=== PATIENT | male | born 1950 | race Caucasian/White ===

== ENCOUNTER 2022-05-19 17:18 | Inpatient (IN) | payer OTHER, MEDICAID ==
[~2022-05-19] VITALS: Ht 175.3 cm; Wt 111.1 kg
[2022-05-19 17:35] VITALS: BP_SYST 82
[2022-05-19] MEDS ORDERED: NACL 0.9% 1,000 ML IV ONE (19:45)
[2022-05-19 20:17] LABS: BASOPHILS % (AUTO) 0.3 % (0.0-2.0); EOSINOPHILS % (AUTO) 0.3 % (0.0-4.0); HEMATOCRIT 46.5 % (36-54); HEMOGLOBIN 15.4 g/dL (14.0-18.0); LYMPHOCYTES # (AUTO) 1.3 K/uL (1.0-5.5); MEAN CORPUSCULAR HEMOGLOBIN 32 pg (27-31); MEAN CORPUSCULAR HGB CONC 33 % (32-36); MEAN CORPUSCULAR VOLUME 96 fL (79.0-98.0); MONOCYTES # (AUTO) 1.3 K/uL (0.0-1.0); MONOCYTES % (AUTO) 12.5 % (1.7-9.3); NEUTROPHILS # (AUTO) 7.4 K/uL (1.8-7.7); NEUTROPHILS % (AUTO) 73.9 % (40.0-70.0); PLATELET COUNT (AUTO) 244 K/uL (130-430); RED BLOOD CELL COUNT(AUTO) 4.85 MIL/uL (4.2-6.2); RED CELL DISTRIBUTION WIDTH 14.4 % (9.0-15.0); WHITE BLOOD COUNT (AUTO) 10.1 K/uL (4.8-10.8)
[2022-05-19 20:19] LABS: ANION GAP 11 (5-15); CALCIUM 7.9 mg/dL (8.4-11.0); CHLORIDE 101 mmol/L (98-107); CREATININE 2.67 mg/dL (0.55-1.30); GLUCOSE 94 mg/dL (70-99); POTASSIUM 3.6 mmol/L (3.5-5.1); SODIUM SERUM 137 mmol/L (136-145); UREA NITROGEN, BLOOD 48 mg/dL (8-21)
[2022-05-19 20:34] LABS: ALBUMIN 3.8 g/dL (3.4-4.8); ASPARTATE AMINOTRANSFERASE 10 U/L (10-37); LIPASE 882 U/L (73-393); TOTAL BILIRUBIN 1.3 mg/dL (0.0-1.0)
[2022-05-19 20:49] LABS: ALANINE AMINOTRANSFERASE 9 U/L (12-78)
[2022-05-19] MEDS ORDERED: DIPHENHYDRAMINE INJ 50 MG/ML VIAL IVP ONE (21:00)
[2022-05-19] MEDS ORDERED: HALOPERIDOL LACTATE 5 MG/ML VIAL IVP ONE (21:00)
[2022-05-19] MEDS ORDERED: LORazepam 2 MG/ML VIAL IVP ONE (21:00)
[2022-05-19] MEDS ORDERED: NACL 0.9% 1,000 ML IV SCH (22:45)
[2022-05-19] MEDS ORDERED: ACETAMINOPHEN 325 MG TABLET PO PRN (22:45)
[2022-05-19] MEDS ORDERED: ALBUTEROL SULFATE 0.083% 2.5 MG/3 ML VIAL.NEB INH PRN (22:45)
[2022-05-19 23:25] LABS: BILIRUBIN,URINE NEGATIVE (NEGATIVE); BLOOD, URINE NEGATIVE (NEGATIVE); CLARITY/URINE CLEAR (CLEAR); COLOR,URINE YELLOW (YELLOW); GLUCOSE,URINE NEGATIVE (NEGATIVE); KETONES,URINE NEGATIVE (NEGATIVE); LEUKOCYTE ESTERASE ,URINE NEGATIVE (NEGATIVE); NITRITE, URINE NEGATIVE (NEGATIVE); PROTEIN URINE NEGATIVE (NEGATIVE); UROBILINOGEN,URINE 0.2 (0.2-1.0)
[2022-05-20] VITALS (7 sets, daily range): BP systolic 82–134
[2022-05-20] MEDS: NACL 0.9% 1,000 ML IV SCH ×3 (02:44→22:59)
[2022-05-20] MEDS ORDERED: [UNRECOGNIZED DRUG - CODE] (03:06)
[2022-05-20] MEDS ORDERED: IBRU70CA (03:06)
[2022-05-20] MEDS ORDERED: DONE5TAB3 (03:06)
[2022-05-20] MEDS ORDERED: LISI-209 (03:06)
[2022-05-20] MEDS ORDERED: HYDR12.5 (03:06)
[2022-05-20] MEDS ORDERED: OMEP20CA15 (03:06)
[2022-05-20] MEDS ORDERED: [UNRECOGNIZED DRUG - CODE] (03:06)
[2022-05-20] MEDS ORDERED: MULT-976 (03:06)
[2022-05-20 06:43] LABS: BASOPHILS % (AUTO) 0.3 % (0.0-2.0); EOSINOPHILS % (AUTO) 0.2 % (0.0-4.0); HEMATOCRIT 44.9 % (36-54); HEMOGLOBIN 15.2 g/dL (14.0-18.0); LYMPHOCYTES # (AUTO) 1.1 K/uL (1.0-5.5); LYMPHOCYTES % (AUTO) 15.5 % (20.5-51.5); MEAN CORPUSCULAR HEMOGLOBIN 33 pg (27-31); MEAN CORPUSCULAR HGB CONC 34 % (32-36); MEAN CORPUSCULAR VOLUME 96 fL (79.0-98.0); MONOCYTES # (AUTO) 1.4 K/uL (0.0-1.0); MONOCYTES % (AUTO) 20.1 % (1.7-9.3); NEUTROPHILS # (AUTO) 4.4 K/uL (1.8-7.7); NEUTROPHILS % (AUTO) 63.9 % (40.0-70.0); PLATELET COUNT (AUTO) 154 K/uL (130-430); RED BLOOD CELL COUNT(AUTO) 4.66 MIL/uL (4.2-6.2); RED CELL DISTRIBUTION WIDTH 14.1 % (9.0-15.0); WHITE BLOOD COUNT (AUTO) 6.9 K/uL (4.8-10.8)
[2022-05-20 07:00] LABS: ALANINE AMINOTRANSFERASE 9 U/L (12-78); ANION GAP 12 (5-15); ASPARTATE AMINOTRANSFERASE 11 U/L (10-37); CHLORIDE 105 mmol/L (98-107); CREATININE 1.69 mg/dL (0.55-1.30); GLUCOSE 75 mg/dL (70-99); POTASSIUM 3.1 mmol/L (3.5-5.1); SODIUM SERUM 139 mmol/L (136-145); TOTAL BILIRUBIN 1.8 mg/dL (0.0-1.0); UREA NITROGEN, BLOOD 36 mg/dL (8-21)
[2022-05-20] MEDS ORDERED: POTASSIUM CHLORIDE 20 MEQ/PKT PACKET PO ONE (21:30)
[2022-05-21 00:15] VITALS: BP_SYST 122
[2022-05-21] MEDS ORDERED: DIPHENHYDRAMINE INJ 50 MG/ML VIAL IVP ONE (03:30)
[2022-05-21 06:41] LABS: BASOPHILS % (AUTO) 0.5 % (0.0-2.0); EOSINOPHILS % (AUTO) 0.5 % (0.0-4.0); HEMATOCRIT 40.6 % (36-54); HEMOGLOBIN 13.8 g/dL (14.0-18.0); LYMPHOCYTES # (AUTO) 1.1 K/uL (1.0-5.5); LYMPHOCYTES % (AUTO) 18.1 % (20.5-51.5); MEAN CORPUSCULAR HEMOGLOBIN 33 pg (27-31); MEAN CORPUSCULAR HGB CONC 34 % (32-36); MEAN CORPUSCULAR VOLUME 96 fL (79.0-98.0); MONOCYTES # (AUTO) 1.2 K/uL (0.0-1.0); MONOCYTES % (AUTO) 20.8 % (1.7-9.3); NEUTROPHILS # (AUTO) 3.6 K/uL (1.8-7.7); NEUTROPHILS % (AUTO) 60.1 % (40.0-70.0); PLATELET COUNT (AUTO) 171 K/uL (130-430); RED BLOOD CELL COUNT(AUTO) 4.21 MIL/uL (4.2-6.2); RED CELL DISTRIBUTION WIDTH 14.4 % (9.0-15.0)
[2022-05-21 08:07] LABS: ALBUMIN 2.7 g/dL (3.4-4.8); CALCIUM 7.6 mg/dL (8.4-11.0); GLUCOSE 77 mg/dL (70-99); POTASSIUM 3.1 mmol/L (3.5-5.1); UREA NITROGEN, BLOOD 21 mg/dL (8-21)
[2022-05-21 08:52] VITALS: BP_SYST 126
[2022-05-21] MEDS: NACL 0.9% 1,000 ML IV SCH ×2 (08:52→20:44)
[2022-05-21 09:11] LABS: ALANINE AMINOTRANSFERASE 8 U/L (12-78); ANION GAP 12 (5-15); ASPARTATE AMINOTRANSFERASE 16 U/L (10-37); CHLORIDE 108 mmol/L (98-107); CREATININE 1.09 mg/dL (0.55-1.30); SODIUM SERUM 139 mmol/L (136-145); TOTAL BILIRUBIN 1.5 mg/dL (0.0-1.0)
[2022-05-21 11:37] VITALS: BP_SYST 135
[2022-05-21 15:36] VITALS: BP_SYST 125
[2022-05-21 20:54] VITALS: BP_SYST 154
[2022-05-22 00:13] VITALS: BP_SYST 152
[2022-05-22] MEDS: NACL 0.9% 1,000 ML IV SCH ×2 (05:15→18:04)
[2022-05-22 07:52] VITALS: BP_SYST 163
[2022-05-22 08:11] LABS: ANION GAP 13 (5-15); CALCIUM 7.5 mg/dL (8.4-11.0); CHLORIDE 112 mmol/L (98-107); CREATININE 0.96 mg/dL (0.55-1.30); GLUCOSE 75 mg/dL (70-99); POTASSIUM 3.2 mmol/L (3.5-5.1); SODIUM SERUM 142 mmol/L (136-145); UREA NITROGEN, BLOOD 21 mg/dL (8-21)
[2022-05-22] MEDS ORDERED: POTASSIUM CHLORIDE 20 MEQ TAB.PRT.SR PO ONE (09:45)
[2022-05-22] MEDS ORDERED: POTASSIUM CHLORIDE 40 MEQ in NS 250 ML IV ONE (10:30)
[2022-05-22] MEDS: POTASSIUM CHLORIDE 20 mEq in 100 mL (PREMIX) 100 ML x 2 doses IV SCH ×2 (12:20→14:40)
[2022-05-22 12:48] VITALS: BP_SYST 155
[2022-05-22 17:12] VITALS: BP_SYST 150
[2022-05-23] VITALS: BP_SYST 160
[2022-05-23] MEDS ORDERED: LORazepam 2 MG/ML VIAL IVP ONE (02:45)
[2022-05-23 08:26] VITALS: BP_SYST 163
[2022-05-23] MEDS: NACL 0.9% 1,000 ML IV SCH ×3 (12:00→20:45)
[2022-05-23 12:39] VITALS: BP_SYST 122
[2022-05-23 16:56] VITALS: BP_SYST 126
[2022-05-23 19:40] VITALS: BP_SYST 151
[2022-05-24 01:43] VITALS: BP_SYST 146
[2022-05-24] MEDS: NACL 0.9% 1,000 ML IV SCH ×3 (06:34→22:20)
[2022-05-24 08:00] VITALS: BP_SYST 167
[2022-05-24 10:12] LABS: BASOPHILS % (AUTO) 0.3 % (0.0-2.0); EOSINOPHILS % (AUTO) 0.4 % (0.0-4.0); HEMATOCRIT 42.3 % (36-54); HEMOGLOBIN 14.3 g/dL (14.0-18.0); LYMPHOCYTES # (AUTO) 0.5 K/uL (1.0-5.5); LYMPHOCYTES % (AUTO) 7.2 % (20.5-51.5); MEAN CORPUSCULAR HEMOGLOBIN 33 pg (27-31); MEAN CORPUSCULAR HGB CONC 34 % (32-36); MEAN CORPUSCULAR VOLUME 96 fL (79.0-98.0); MONOCYTES # (AUTO) 0.8 K/uL (0.0-1.0); MONOCYTES % (AUTO) 10.9 % (1.7-9.3); NEUTROPHILS % (AUTO) 81.2 % (40.0-70.0); PLATELET COUNT (AUTO) 177 K/uL (130-430); RED BLOOD CELL COUNT(AUTO) 4.41 MIL/uL (4.2-6.2); RED CELL DISTRIBUTION WIDTH 14.4 % (9.0-15.0); WHITE BLOOD COUNT (AUTO) 7.3 K/uL (4.8-10.8)
[2022-05-24 10:21] LABS: ANION GAP 9 (5-15); CALCIUM 7.4 mg/dL (8.4-11.0); CHLORIDE 116 mmol/L (98-107); CREATININE 0.97 mg/dL (0.55-1.30); GLUCOSE 127 mg/dL (70-99); SODIUM SERUM 149 mmol/L (136-145); UREA NITROGEN, BLOOD 13 mg/dL (8-21)
[2022-05-24 10:32] LABS: POTASSIUM 2.8 mmol/L (3.5-5.1)
[2022-05-24] MEDS: POTASSIUM CHLORIDE 20 MEQ TAB.PRT.SR PO SCH ×2 (11:44→13:31)
[2022-05-24 12:30] VITALS: BP_SYST 139
[2022-05-24 16:55] VITALS: BP_SYST 132
[2022-05-24 19:45] VITALS: BP_SYST 155
[2022-05-25 02:08] VITALS: BP_SYST 136
[2022-05-25 08:00] VITALS: BP_SYST 181
[2022-05-25] MEDS ORDERED: hydrALAZINE HCL 20 MG/ML VIAL IVP PRN (08:00)
[2022-05-25] MEDS: KCL 20 mEq in D5W 1000 mL 1,000 ML IV SCH ×3 (08:55→20:30)
[2022-05-25] MEDS: lisinopriL 5 MG TABLET PO SCH (08:56)
[2022-05-25] MEDS: HYDROCHLOROTHIAZIDE 12.5 MG CAPSULE (HCTZ) PO SCH (08:57)
[2022-05-25] MEDS: DONEPEZIL HCL 5 MG TABLET (ARICEPT) PO SCH (08:57)
[2022-05-25 12:00] VITALS: BP_SYST 148
[2022-05-25 16:00] VITALS: BP_SYST 146
[2022-05-25] MEDS: PANTOPRAZOLE SODIUM 40 MG TAB PO SCH (16:52)
[2022-05-25] MEDS ORDERED: OMEPRAZOLE Non-Formulary 20 MG CAPSULE.DR PO SCH (17:00)
[2022-05-25 19:45] VITALS: BP_SYST 155
[2022-05-25] MEDS ORDERED: MIRTAZAPINE 15 MG TABLET PO SCH (21:00)
[2022-05-26 01:29] VITALS: BP_SYST 151
[2022-05-26] MEDS: KCL 20 mEq in D5W 1000 mL 1,000 ML IV SCH ×2 (05:00→16:18)
[2022-05-26] MEDS: PANTOPRAZOLE SODIUM 40 MG TAB PO SCH ×2 (06:16→18:29)
[2022-05-26] MEDS: lisinopriL 5 MG TABLET PO SCH (10:02)
[2022-05-26] MEDS: HYDROCHLOROTHIAZIDE 12.5 MG CAPSULE (HCTZ) PO SCH (10:02)
[2022-05-26] MEDS: DONEPEZIL HCL 5 MG TABLET (ARICEPT) PO SCH (10:02)
[2022-05-26 11:17] LABS: ANION GAP 5 (5-15); CALCIUM 7.6 mg/dL (8.4-11.0); CHLORIDE 113 mmol/L (98-107); CREATININE 0.99 mg/dL (0.55-1.30); GLUCOSE 94 mg/dL (70-99); POTASSIUM 3.2 mmol/L (3.5-5.1); SODIUM SERUM 147 mmol/L (136-145); UREA NITROGEN, BLOOD 9 mg/dL (8-21)
[2022-05-26 11:26] VITALS: BP_SYST 121
[2022-05-26 15:57] VITALS: BP_SYST 130
[2022-05-26 18:00] VITALS: BP_SYST 134
== END 2022-05-26 18:25 | disposition hospice, home (50) | DRG 438 ==
LOC: SED 17:18 → STU 22:33 → SMU 05-22 16:48
PROVIDERS: ADMIT Internal Medicine Hospice and Palliative Medicine; ATTEND Internal Medicine Hospice and Palliative Medicine
DX: K85.90 Acute pancreatitis without necrosis or infection, unspecified (principal); E43 Unspecified severe protein-calorie malnutrition; N17.0 Acute kidney failure with tubular necrosis; E87.0 Hyperosmolality and hypernatremia; R62.7 Adult failure to thrive; E86.0 Dehydration; I95.9 Hypotension, unspecified; F02.80 Dementia in other diseases classified elsewhere, unspecified severity, without behavioral disturbance, psychotic disturbance, mood disturbance, and anxiety; G30.9 Alzheimer's disease, unspecified; I10 Essential (primary) hypertension; Z96.643 Presence of artificial hip joint, bilateral; E87.8 Other disorders of electrolyte and fluid balance, not elsewhere classified; E87.6 Hypokalemia; Z20.822 Contact with and (suspected) exposure to COVID-19; Z68.36 Body mass index [BMI] 36.0-36.9, adult; Z85.72 Personal history of non-Hodgkin lymphomas; Z79.899 Other long term (current) drug therapy; Z78.1 Physical restraint status
CPT/HCPCS: 36415; 70450-TC; 71045; 76376; 76770; 80048; 80053; 81003; 83605; 83690; 84484; 85025; 87040; 87230-TC; 93005; 93306; 96361; 96374; 96375; 97116-GP; 97530-GP; 99285; G0378; J1200; J1630; J2060; J3480